=== PATIENT | male | born 1980 | race Caucasian/White ===

== ENCOUNTER 2024-04-19 06:45 | Inpatient (IN) | payer OTHER, SELFPAY ==
[2024-04-19] VITALS (12 sets, daily range): BP systolic 115–179; BP diastolic 66–100; BMI 28.4; BMI 28.1
--- NOTE | 2024-04-19 04:38 | ED.GENMED ---
History of Present Illness
General
Chief Complaint: Skin Problem
Source: patient
Exam Limitations: none
Time Seen by Provider: 04/19/24 04:24
Nursing documentation reviewed up to this point in time: agreed with
History of Present Illness
History of Present Illness:
This is a 43-year-old gentleman who has history of sporadic skin abscesses requiring hospitalization for IV antibiotics approximately 2 years ago.
He complains of a skin abscess right lower quadrant of his abdomen that began about 5 days ago, he started Bactrim�given to him by somebody else 2 days ago and has been attempting to squeeze the abscess and has been successful in drainage of a small
to moderate amount of yellowish purulent discharge but continues with significant pain and abscess as well as surrounding skin erythema have slowly worsened over the past 5 days.
He is unsure if he has been running a fever but does admit to intermittent chills and aches as well as intermittent sweats. He has been taking Tylenol as well as ibuprofen several times daily.
He takes no medicines on a daily basis. He denies history of diabetes, denies IV drug use, denies known history of MRSA. Last episode of skin abscess was at least 2 years ago perhaps longer.
He does have several tattoos but denies recent tattooing.
Past History
Past History
ED Past Medical History: Other (Skin abscesses requiring hospitalization)
ED Past Surgical History: None
Social History
Tobacco: Non-smoker
Drug: None
Family History
Family History: Other (Noncontributory)
Phy Exam
Physical Exam
Physical Exam:
GENERAL: 43-year-old gentleman appears somewhat older than stated age, awake and alert, pleasant, appears in mild distress related to pain but easily communicative. Afebrile.
EYE: anicteric
NECK: Supple, nontender, no meningismus, no significant adenopathy.
ENT: oral mucosa is moist. No rhinorrhea.
CARDIAC: Regular rate and rhythm. no murmur.
LUNGS: Clear breath sounds bilaterally, no acute respiratory distress, no wheezes/rales/rhonchi
ABDOMEN: Soft, nondistended, there is a large approximately 6 cm x 10 cm skin abscess right lower quadrant with a 1 cm medial ulcerated area with scant drainage of yellowish exudate. There is significant surrounding erythema as well as moderate
firmness tracking laterally from the skin abscess to the right lateral lower flank region. There is exquisite tenderness over the skin abscess and right lateral distal flank region.
NEUROLOGICAL: Alert and oriented x3, no focal neuro deficits. Gait is steady.
SKIN: Warm and dry, good turgor. Multiple tattoos.
MUSCULOSKELETAL: No C/C/E. peripheral pulses are full and equal b/l. No palpable tenderness.
PSYCH: Normal and appropriate interaction.
Course
Orders/Labs/Results
Orders:
Orders
04/19/24 04:55
Complete Blood Count/With Diff Urgent
Comprehensive Metabolic Panel Urgent
Lactic Acid Urgent
Blood Culture Q30M
[place] Source: Blood/Venous
Specimen Description:
HYDROmorphone [Dilaudid] 1 mg IV NOW STA
04/19/24 04:58
Blood Culture Q30M
[facility] Source: Blood/Venous
Specimen Description:
Wound Culture [Wound/Abscess/Other Culture] Urgent
[facility] Source: Abdomen
Specimen Description:
Date Specimen was Collected: 04/19/24
Time Specimen was Collected: 04:57
Comment: abscess
04/19/24 05:03
Vancomycin [Vancocin] 2,000 mg 0.9% Sodium Chloride 500 ml [Nss] 500 ml IV NOW
04/19/24 05:49
CT Abd/pelvis W Iv Cont Urgent
Comment:
Reason For Exam: large skin abscess RLQ w cellulitis
04/19/24 06:26
0.9% Sodium Chloride 500 ml [Nss] 500 ml IV BOLUS
04/19/24 06:27
0.9% Sodium Chloride 1000 ml [Nss] 1,000 ml IV BOLUS
04/19/24 06:31
Admit/Transfer Patient As Directed
Co-Sign Provider:
Level of Care: Inpatient admission
Assign to:: Medical/Surgical
Physician / Group: Ciera Alston
Diagnosis: sepsis 2/2 cellulitis/abscess
Reason for Hospitalization: sepsis 2/2 cellulitis/abscess
Expected length of stay greater than two midnights?: Yes
ELOS- Estimated Length of Stay in days: 3
I certify the patient meets the requirements for IP care: Yes
Code Status As Directed
Resuscitation Status: Full Code
Abnormal Lab Results
04/19/24
04:55
WBC 20.1 H 10^3/uL
(4.8-10.8)
RBC 4.17 L 10^6/uL
(4.70-6.10)
Hgb 12.9 L g/dL
(13.0-18.0)
Hct 38.0 L %
(39.0-52.0)
Abs Immat Gran (auto) 0.2 H 10^3/uL
(0-0.05)
Absolute Neuts (auto) 16.6 H 10^3/uL
(1.4-6.5)
Absolute Monos (auto) 1.9 H 10^3/uL
(0.1-0.6)
Immature Gran % 0.7 H %
(0-0.5)
Neutrophils % 82.5 H %
(42.2-75.2)
Lymphocytes % 6.2 L %
(20.5-51.1)
Carbon Dioxide 21 L mmol/L
(22-30)
BUN 22 H mg/dl
(9-20)
04/19/24 04:55
04/19/24 04:55
Vital Signs
Initial and Last Documented VS:
Initial Vital Signs
Temp Pulse Resp BP Pulse Ox
98.3 F 93 22 156/90 96
04/19/24 04:10 04/19/24 04:10 04/19/24 04:10 04/19/24 04:10 04/19/24 04:10
Last Documented Vital Signs
Temp Pulse Resp BP Pulse Ox
98.3 F 84 15 134/80 98
04/19/24 04:10 04/19/24 06:15 04/19/24 06:15 04/19/24 06:00 04/19/24 06:15
MDM/Problems Addressed
Differential Diagnosis Includes:
Patient presents with large arm skin abscess right lower quadrant with significant surrounding cellulitis.
Concern for deeper skin infection and concerned that erythema/abscess have worsened despite initiation of oral antibiotics 2 days ago.
He does admit to squeezing the abscess, concern that these actions have been inadvertently driven infection deeper.
He does have history of similar abscesses in the past, I suspect this is MRSA related.
He denies history of diabetes nor immunocompromise.
Will check labs, blood cultures, lactic acid, wound culture.
This abscess is quite firm without fluctuance and at this point not amenable to incision and drainage.
Will initiate IV antibiotics, IV pain medication and will likely require acute hospitalization due to extent of surrounding erythema/induration.
*Radiology
Radiology exam reviewed: radiology read reviewed (CAT scan shows severe/extensive cellulitis throughout the right anterolateral abdominal wall. No evidence of rim-enhancing abscess nor soft tissue emphysema.)
*Pulse Oximetry
Patient hypoxic: no
*Critical Care Note
Total Time (30-74mins, 75-104mins- exclusive of procedures): Not Applicable
Update Note
Update Note:
04/19/2024 0550 AM
Patient reports moderate relief of pain after IV Dilaudid, resting comfortably and remains afebrile.
White blood cell count significantly elevated at 20.1.
Will continue antibiotics, as needed pain medication and will check CT abdomen pelvis to assess for depth and extent of abscess and admit to hospitalist service.
ED Attending Note
-
Portions of this chart may have been created with voice recognition software.� Occasional wrong word or��sound alike� substitutions may have occurred due to the inherent limitations of voice recognition software.
Discharge Plan
Departure
Patient Disposition: Admit
Date of Disposition: 04/19/24
Time of Disposition: 05:45
Admit to: Med/Surg
Admit to doctor: Gamaliel
Presentation/result/management discussed w/ accepting MD/DO: Hospitalist
Condition: Fair
Discharge Problem:
Cutaneous abscess of abdominal wall, cellulitis and abscess of abdominal wall
Interventions
Interventions:
*Risk Screen - Suicide Last Done: 04/19/24 04:10
*General Assessment Last Done: 04/19/24 04:30
*Neglect/Abuse Screening Last Done: 04/19/24 04:10
*ED COVID-19 Vaccine History Last Done: 04/19/24 04:10
ED-Skin Assessment Last Done: 04/19/24 05:24
[2024-04-19] MEDS: DILAUDID 1 MG IV (05:03)
[2024-04-19 05:18] LABS: % Basophils 0.4 % (0-2); % Eosinophils 0.9 % (0-6); % Immature Granulocytes 0.7 % (0-0.5); % Lymphocytes 6.2 % (20.5-51.1); % Monocytes 9.3 % (1.7-9.3); % Neutrophils 82.5 % (42.2-75.2); Absolute Basophils 0.1 10^3/uL (0-0.2); Absolute Eosinophils 0.2 10^3/uL (0-0.7); Absolute Immature Granulocytes 0.2 10^3/uL (0-0.05); Absolute Lymphocytes 1.3 10^3/uL (1.2-3.4); Absolute Monocytes 1.9 10^3/uL (0.1-0.6); Absolute Neutrophils 16.6 10^3/uL (1.4-6.5); Hemoglobin 12.9 g/dL (13.0-18.0); Mean Corp Hgb Conc. 33.9 g/dL (33.0-37.0); Mean Corpuscular Hgb 30.9 pg (27.0-31.0); Mean Corpuscular Volume 91.1 fL (80.0-94.0); Mean Platelet Volume 10.4 fL (7.4-10.4); Nucleated Red Blood Cells % 0 % (-); Platelet Count 231 10^3/uL (130-400); Red Blood Cell Count 4.17 10^6/uL (4.70-6.10); Red Cell Dist. Width 14.5 % (11.5-14.5); White Blood Cell Count 20.1 10^3/uL (4.8-10.8)
[2024-04-19] MEDS: VANCOCIN 540 MG IV (05:20)
[2024-04-19 05:34] LABS: ALT (SGPT) 33 U/L (0-50); AST (SGOT) 31 U/L (17-59); Alkaline Phosphatase 71 U/L (38-126); Blood Urea Nitrogen 22 mg/dl (9-20); Calcium 9.2 mg/dl (8.4-10.2); Carbon Dioxide 21 mmol/L (22-30); Chloride 104 mmol/L (98-107); Estimated Creatinine Clearance 94 ml/min; Glucose 98 mg/dl (70-99); Potassium 4.4 mmol/L (3.5-5.1); Sodium 138 mmol/L (135-145); Total Bilirubin 0.7 mg/dl (0.2-1.3); Total Protein 6.9 g/dl (6.3-8.2); eGFR > 60.00
--- NOTE | 2024-04-19 05:52 | HPS.HSE ---
Family Physician
-
Family Physician: * NONE
Chief Complaint
-
skin problem
History of Present Illness
Mr. Gareth Antonio is a 43 yo man with hx skin abscess with one requiring hospitalization 2 years ago for IV antibiotics presents to the ER for finding of in-grown hair 5 days ago which has now developed into an abscess right lower quadrant of
abdomen. He was given Bactrim 2 days ago but continues to have significant pain and redness in area.
Patient states he noticed an ingrown hair and picked at it but couldn't get it out. He tried at home naturopathic topical remedies but area continued to grow. He started Bactrim 3 days ago. He states that area of exudate is improving but erythema
and pain/ induration lateral to it has remained the same and maybe progressed prompting him to come to the ER. He believes he was feverish at home. No nausea/vomiting/diarrhea. He has been eating and drinking OK.
No chest pain or shortness of breath. No abscesses in other parts of body. Patient denies recent injury to the area, he denies IVDA. 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
infections.
Medical History
Past Medical History
Past Medical History: Reports None
Past Surgical History: Reports None
Social History
Tobacco: Non-smoker
Drug: None
Family History
Family History: Not pertinent
Allergies / Home Medications
Allergies reflects when Allergies were last updated in [employer].
Home Medications with original date entered in [employer]
Allergy/Medication List:
Allergies
Allergy/AdvReac Type Severity Reaction Status Date / Time
No Known Allergies Allergy Unverified 04/19/24 04:10
Home Medications
No Meds [No Current Medications] 04/19/24
Review of Systems
-
History Source: Patient
A 12 point ROS was completed and negative except as noted: Yes
Physical Exam
Vital Signs
Vital Signs
Temp Pulse Resp BP Pulse Ox
98.3 F 93 22 156/90 96
04/19/24 04:10 04/19/24 04:10 04/19/24 04:10 04/19/24 04:10 04/19/24 04:10
Physical Exam
General: No Apparent Distress
HEENT: PERRLA
Respiratory: Clear; No Wheezes
Cardiac: S1/S2 and Regular Rhythm
GI: Other (right lower quadrant with area of erythema, induration with smaller area of exudate and drainage. erythema extends down lateral side. area warm and tender )
Musculoskeletal: No Edema
Skin: Warm and Dry; No Rash
Neuro: AO x 3
Psych: Calm
Laboratory Results
-
04/19/24 04:55
04/19/24 04:55
Laboratory Results
Lactic Acid 1.0 mmol/L (0.7-2.0) 04/19/24 04:55
Total Bilirubin 0.7 mg/dl (0.2-1.3) 04/19/24 04:55
AST 31 U/L (17-59) 04/19/24 04:55
ALT 33 U/L (0-50) 04/19/24 04:55
Alkaline Phosphatase 71 U/L (38-126) 04/19/24 04:55
Data Reviewed
-
Diagnostic Radiology: Report Reviewed by me
Lab Data: Labs Reviewed by me
Impression/Plan
-
Mr. Gareth Antonio is a 43 yo man with hx skin abscess requiring hospitalization 2 years ago for IV antibiotics presents to the ER for finding of abscess right lower quadrant of abdomen 5 days ago. He was given Bactrim 2 days ago but continues to
have significant pain and redness in area.
Triage VS: T 98.3, P 93, RR 22, BP 156/90, SpO2 96%
LABS: WBC 20.1, Hg 12.9, PLT 231, Na 138, K+ 4.4, CO2 21, BUN 22, Cr 1.2, Glucose 98, lactate 1.0, Ca 9.2, liver enzymes WNL
Skin abscess on abdomen
Sepsis 2/2 skin abscess
Hx skin abscess requiring hospitalization 2 years ago
-admit to med/surg
-s/p IV Vancomycin in the ER, will continue
-CT A/P ordered in ER, follow up results
-will keep NPO until results to ensure no deeper infection that requires surgical consult
-follow up blood cultures
-follow up wound culture (cultured from small area of drainage)
-IVF
-pain control (add on oral when starting diet)
DVT PPx lovenox
FULL CODE
[2024-04-19] MEDS: NSS 1000 IV (07:42)
[2024-04-19] MEDS: DILAUDID 0.5 MG IV ×4 (07:47→22:08)
[2024-04-19] MEDS: TORADOL 15 MG IV ×3 (09:37→20:41)
--- NOTE | 2024-04-19 09:45 | PHA.VAN.IN ---
Addendum entered and electronically signed by Letitia Benitez [facility] 04/19/24 12:02:
Received IV contrast 04/19 and on ketorolac PRN - follow renal function and dose vanco cautiously
Original Note:
Assessment
- Assessment
Renal Function: Unknown baseline
Plan
- Plan
Initial / Loading Dose: 2000mg - 04/19 05:20
Maintenance Regimen: dosing by level - give 1250mg x1 at 1800
Monitoring: random 04/20 0600
May be able to schedule dosing
Unknown baseline renal function and may require dose adjustment based on SCR trend
Will trial with BID dosing by giving dose at 1800 tonight
Pharmacokinetics Vancomycin I
- -
Patient Age: 43
Patient Sex: Male
Vancomycin Day #: 1
Indication: Skin And Soft Tissue
Requesting Provider: Dr. Alston
Pertinent Antimicrobial Allergies:
NKDA
Height / Weight:
Height 6 ft 2 in
Actual Weight 100.3 kg
- Vital Signs / Lab Results
Temp Pulse Resp BP Pulse Ox
98.6 F 85 18 119/74 98
04/19/24 07:50 04/19/24 07:50 04/19/24 07:50 04/19/24 07:50 04/19/24 07:50
Lab Results - Hematology
04/19/24
04:55
WBC 20.1 H
Lab Results - Chemistry
04/19/24
04:55
BUN 22 H
Creatinine 1.2
Estimated Creat Clear 94
Albumin 4.0
04/19/24
04:55
Lactic Acid 1.0
[2024-04-19] MEDS: LR 1000 IV (11:56)
[2024-04-19] MEDS: TYLENOL 650 MG PO ×3 (11:59→22:18)
[2024-04-19] MEDS: ZOFRAN 4 MG IV (12:00)
[2024-04-19] MEDS: VISBIOME 1 CAP PO (12:37)
[2024-04-19] MEDS: LOVENOX 40 MG SC (17:06)
[2024-04-19] MEDS: VANCOCIN 275 MG IV (18:14)
--- NOTE | 2024-04-19 21:05 | PTCARENOTE ---
At the start of the shift pt was very upset about the temperature of his room. Fan on at the bedside. Temp 100.3. Pt made aware that he would be moved to room 427 once the room became open. He became very anxious stating that he couldn't believe
they would put someone in is condition in a hot room. Paula Evans NURSING SCHEDULER aware of his anxiety and concerns and the fact that he is asking for something for anxiety. He is also asking for a shower. Order was put in for shower. When pt attempted to
shower it was discovered that the shower does not work. Pt continued to complain about temperature and pain. Reviewed medications and when they are due. Tordal was given. Pt requesting that Dilaudid be increase to 1mg as he is a 'big ward'. Nursing
Food [employer] Nutrition Teacher was called about finding him a room to move to. Decision was made to move him to room 411 bed 2. Report was given to Kylie. Paula Evans talked to him once moved to that room. All belongings were transferred with him.
--- NOTE | 2024-04-19 22:33 | PTCARENOTE ---
Received patient from 4W. Pt AAOX3. Pt anxious; c/o R lower abd pain 10/10. Pt took a shower. Pox: 97% RA. Call lowe within reach. Plan of care ongoing.
[2024-04-20] MEDS: DILAUDID 0.5 MG IV ×2 (00:36→05:03)
[2024-04-20] MEDS: ZOFRAN 4 MG IV (00:37)
[2024-04-20] MEDS: FLUSH (NSS) 1 FLUSH IV (00:37)
[2024-04-20] MEDS: TYLENOL 650 MG PO ×4 (02:30→20:27)
[2024-04-20] MEDS: LR 1000 IV (02:30)
[2024-04-20] MEDS: TORADOL 15 MG IV (06:14)
[2024-04-20 06:23] VITALS: BP 143/92
[2024-04-20 07:03] VITALS: BP 143/92
[2024-04-20 07:11] LABS: % Basophils 0.3 % (0-2); % Eosinophils 0.9 % (0-6); % Immature Granulocytes 0.6 % (0-0.5); % Lymphocytes 8.2 % (20.5-51.1); % Monocytes 9.1 % (1.7-9.3); % Neutrophils 80.9 % (42.2-75.2); Absolute Basophils 0.1 10^3/uL (0-0.2); Absolute Eosinophils 0.1 10^3/uL (0-0.7); Absolute Immature Granulocytes 0.1 10^3/uL (0-0.05); Absolute Lymphocytes 1.3 10^3/uL (1.2-3.4); Absolute Monocytes 1.5 10^3/uL (0.1-0.6); Absolute Neutrophils 13.1 10^3/uL (1.4-6.5); Hematocrit 34.9 % (39.0-52.0); Hemoglobin 11.8 g/dL (13.0-18.0); Mean Corp Hgb Conc. 33.8 g/dL (33.0-37.0); Mean Corpuscular Hgb 31.4 pg (27.0-31.0); Mean Corpuscular Volume 92.8 fL (80.0-94.0); Mean Platelet Volume 10.1 fL (7.4-10.4); Nucleated Red Blood Cells % 0 % (-); Platelet Count 202 10^3/uL (130-400); Red Blood Cell Count 3.76 10^6/uL (4.70-6.10); White Blood Cell Count 16.2 10^3/uL (4.8-10.8)
[2024-04-20 08:00] LABS: Blood Urea Nitrogen 12 mg/dl (9-20); Calcium 8.4 mg/dl (8.4-10.2); Carbon Dioxide 21 mmol/L (22-30); Chloride 100 mmol/L (98-107); Estimated Creatinine Clearance 106 ml/min; Glucose 95 mg/dl (70-99); Potassium 4.1 mmol/L (3.5-5.1); Sodium 132 mmol/L (135-145); eGFR > 60.00
[2024-04-20 08:11] LABS: Vancomycin Random < 5.0 ug/ml
[2024-04-20] MEDS: VISBIOME 1 CAP PO (08:24)
--- NOTE | 2024-04-20 08:30 | PHA.VAN.FU ---
Vancomycin Assessment / Plan
- Assessment
Renal Function: SCR Decreasing (1.2->1.1)
WBC's are: Trending Down
In the past 24 hrs, patient has been: Febrile (100.8 - 04/19/24 18:37)
- Dosing Plan
Adjust Regimen to: vancomycin 1250mg q12h - first dose this morning
New Regimen Predicts: AUC (427), Peak (26.9), Trough (10.8)
- Monitoring Plan
No level(s) ordered at this time: conisder levels after 4th main. dose 04/21 PM
Monitoring Comments: follow renal function closely - recd IV contrast 04/19; on ketorolac prn
- Follow Up
Pharmacy will continue to follow.
Vancomycin Follow UP
- -
Patient Age: 43
Patient Sex: Male
Vancomycin Day #: 2
Indication: Skin And Soft Tissue
Requesting Provider: Dr. Alston
Pertinent Antimicrobial Allergies:
NKDA
Height / Weight:
Height 6 ft 3 in
Actual Weight 102.058 kg
- Vital Signs / Lab Results
Temp Pulse Resp BP Pulse Ox
98.6 F 90 18 143/92 99
04/20/24 07:03 04/20/24 07:03 04/20/24 07:03 04/20/24 07:03 04/20/24 07:03
Lab Results - Hematology
04/19/24 04/20/24
04:55 07:00
WBC 20.1 H 16.2 H
Lab Results - Chemistry
04/19/24 04/20/24
04:55 07:00
BUN 22 H 12
Creatinine 1.2 1.1
Estimated Creat Clear 94 106
Albumin 4.0
04/19/24
04:55
Lactic Acid 1.0
Microbiology Results
04/19/24 04:58 Blood Culture - Preliminary
Blood/Venous No Growth in 24 hours- Final report to follow
04/19/24 04:55 Blood Culture - Preliminary
Blood/Venous No Growth in 24 hours- Final report to follow
04/19/24 04:58 Gram Stain - Preliminary
Abdomen
Therapeutic Drug Monitoring
Random Vancomycin < 5.0 ug/ml 04/20/24 07:00
[2024-04-20] MEDS: VANCOCIN 275 MG IV ×2 (08:44→17:33)
[2024-04-20] MEDS: ULTRAM 50 MG PO (09:43)
--- NOTE | 2024-04-20 10:06 | W.PN.HOSP.TC ---
Addendum entered and electronically signed by John Granados MD 04/20/24 15:28:
Gen surg evaluated and as suspected no clear fluctuant area to drain
patient does not have pain relief with tramadol, will change to oxycodone,
Addendum entered and electronically signed by John Granados MD 04/20/24 10:15:
Headache
- Dilaudid d/gill if causing it
- empiric dose of imitrex x1
Original Note:
Today's Communication/Plan
-
GS eval for possible need bedside i&d
MRSA screen report pending
pain meds adjusted
continue vanc
Assessment / Plan
Assessment / Plan
Skin abscess on abdomen
Sepsis 2/2 skin abscess
Hx skin abscess requiring hospitalization 2 years ago
-CT a/p didn't show any deeper collection
-continue on IV vancomycin as quite indurate area with surrounding cellulitics
-MRSA screen report pending, denies h/o of immunocompromised state, check a1c
-change iv Dilaudid to oral tramadol for pain control, if not helpful will provide oxycodone
-Gen surg asked to evaluate for possible bedside i&d at bedside, mainly induration in my opinion
-WBC trending down, remains afebrile
Normocytic anemia
-minimal , monitor
Hyponatremia
-mild, pain related ADH excess likely causing euvolemic hyponatremia
DVT PPx lovenox
FULL CODE
Anticipated Discharge: 24 - 48 hours
Subjective/Interval History
-
Date of Service: April 20, 2024
still having significant pain at cellulitis site
afebrile in night
having headache as well
Objective Data
-
Labs:
Laboratory Results
04/20/24
07:00
WBC 16.2 H
Hgb 11.8 L
Hct 34.9 L
Plt Count 202
Sodium 132 L
Potassium 4.1
Chloride 100
Carbon Dioxide 21 L
BUN 12
Creatinine 1.1
Glucose 95
Calcium 8.4
Vital Signs:
Vital Signs
Temp Pulse Resp BP Pulse Ox
98.6 F 90 18 143/92 99
04/20/24 07:03 04/20/24 07:03 04/20/24 07:03 04/20/24 07:03 04/20/24 07:03
I&O
04/19/24 04/20/24 04/21/24
06:59 06:59 06:59
Intake Total 1959
Balance 1959
Review of Systems
-
Respiratory: Reports No Symptoms
Cardiac: Reports No Symptoms
Abdomen/GI: Reports Abdominal Pain (on right flank)
Physical Exam
-
General: Comfortable
HEENT: Negative Oxygen
Respiratory: Clear to Auscultation
Cardiac: Regular Rhythm and S1/S2; Negative Murmur or Rub
GI: Soft, Nontender, Nondistended and Other (Right lower quadrant linear indurate area of 5x2 cm, scabbed pinpoint area at most prominent point, surrounding skin erythema tracking on back )
Musculoskeletal: No Edema
Neuro: Awake, Alert, Oriented, No Motor Deficits and Nonfocal/Grossly Intact
Psych: Calm
[2024-04-20] MEDS: IMITREX 25 MG PO (10:46)
--- NOTE | 2024-04-20 11:26 | CM ---
The patient resides with his spouse in a two story home with three steps to enter. The patient reports no DME/VN/SNF in the past. The patient confirmed his pharmacy of choice is the [facility]. CM continues to be
available to patient/family and is monitoring medical plan for needs at discharge.
Plan: Discharge plans will depend on the patient's progress.
[2024-04-20 11:46] LABS: Glycohemoglobin (HgbA1c) 5.6 % (4.0-5.6)
--- NOTE | 2024-04-20 12:14 | CON.GS ---
Consultation
-
Requesting Provider: Laura Granadso
Reason for Consultation: cellulitis
Medical History
-
Chief Complaint: skin to abdomen red/inflammed
History of Present Illness:
Mr. Antonio is a 43 yo male who has a history of prior abscesses to skin (one requiring hospitalization at [place]) which he attributes to [facility] training who presents with redness and irritation to the skin on the right mid to lateral abdomen. The
redness began at the site of what looked like an ingrown hair for which he tried naturopathic remedies and removing the hair without much benefit. He was given a script for Bactrim 2-3 days prior to admission, but continued to have significant pain
and redness in area causing him to present. There was bubbling up of the skin with liquid yellow and ?green drainage noted at home to the medial aspect of the wound with erythema spreading from this area laterally across his abdomen. There is some
scabbing and small blistering present with significant erythema tracking around the right flank from the initial wound site which is to the lower right of the umbilicus. Erythema was marked previously and has not improved or worsened from prior
markings. He has been afebrile here but does note subjective fevers at home.
Past Medical History
Past Medical History: Other (Skin infections)
Past Surgical History: None
Social History
Tobacco: Non-Smoker
Alcohol: None
Family History
Family History: Reviewed & Not Pertinent
Allergies / Home Medications
Allergy/AdvReac Type Severity Reaction Status Date / Time
No Known Allergies Allergy Unverified 04/19/24 04:10
�Medication �Instructions �Recorded �Confirmed �Type
Ashwagandha+Lion's Sean 2 tab PO DAILY 04/19/24 04/19/24 History
Beet Root 1 dose PO DIRECTED 04/19/24 04/19/24 History
acetaminophen 500 mg tablet 1,000 mg PO DAILYPRN PRN mild 04/19/24 04/19/24 History
(Tylenol Extra Strength) pain/fever
creatine monohydrate 1 ea PO DIRECTED 04/19/24 04/19/24 History
ibuprofen 600 mg tablet 1,200 mg PO DAILYPRN PRN mild 04/19/24 04/19/24 History
pain/fever
Review of Systems
-
History Source: Patient
All other systems: Negative unless noted
A 10 point review of systems was completed, and was negative except as per HPI.
Physical Exam
Vital Signs
Temp Pulse Resp BP Pulse Ox
98.6 F 90 18 143/92 99
04/20/24 07:03 04/20/24 07:03 04/20/24 07:03 04/20/24 07:03 04/20/24 07:03
04/19/24 04/20/24 04/21/24
06:59 06:59 06:59
Actual Weight 100.3 kg 102.058 kg
Body Mass Index (BMI) 28.1
Lab Results
04/20/24 07:00
04/20/24 07:00
WBC 16.2 10^3/uL (4.8-10.8) H 04/20/24 07:00
Hgb 11.8 g/dL (13.0-18.0) L 04/20/24 07:00
Hct 34.9 % (39.0-52.0) L 04/20/24 07:00
Plt Count 202 10^3/uL (130-400) 04/20/24 07:00
Abs Immat Gran (auto) 0.1 10^3/uL (0-0.05) H 04/20/24 07:00
Neutrophils % 80.9 % (42.2-75.2) H 04/20/24 07:00
Physical Exam
General: Well Developed and Well Nourished
HEENT: Moist Mucous Membranes
Respiratory: Non Labored Respirations
GI: Soft and Non Tender
Skin: Warm and Other (right abdomen just right/lateral of umbilicus with crusting/scabbed area with surrounding erythema extending into the flank (not improved or worsened from prior markings))
Neuro: Awake, Alert and AO x 3
Psych: Calm
Assessment / Plan
-
43 yo male with significant cellulitis of the skin to the right abdominal wall into the flank, failed OP PO Bactrim x2-3 days. Afebrile. Leukocytosis improved since admission. Erythema present and severe without induration or fluctuance that would
suggest abscess. CT imaging reviewed without drainable collection/abscess cavity noted although significant subcutaneous edema present.
--NO plans for operative intervention at this time
--Continue local care, ok to shower
--Antibiotics as per primary team
--Wound/MRSA screens pending
[2024-04-20 15:15] VITALS: BP 155/95
[2024-04-20] MEDS: ROXICODONE 10 MG PO ×2 (16:16→20:26)
[2024-04-20] MEDS: LOVENOX SC ×2 (17:32→17:46)
[2024-04-20 23:16] VITALS: BP 147/85
[2024-04-21] MEDS: TYLENOL 650 MG PO ×4 (01:10→23:19)
[2024-04-21] MEDS: ROXICODONE 10 MG PO ×5 (01:10→23:19)
[2024-04-21] MEDS: TORADOL 15 MG IV ×3 (03:37→16:02)
[2024-04-21 05:21] LABS: Hematocrit 36.7 % (39.0-52.0); Hemoglobin 12.4 g/dL (13.0-18.0); Mean Corp Hgb Conc. 33.8 g/dL (33.0-37.0); Mean Corpuscular Hgb 31.2 pg (27.0-31.0); Mean Corpuscular Volume 92.2 fL (80.0-94.0); Mean Platelet Volume 10.4 fL (7.4-10.4); Platelet Count 237 10^3/uL (130-400); Red Blood Cell Count 3.98 10^6/uL (4.70-6.10); Red Cell Dist. Width 13.7 % (11.5-14.5); White Blood Cell Count 15.7 10^3/uL (4.8-10.8)
[2024-04-21 05:45] LABS: Blood Urea Nitrogen 10 mg/dl (9-20); Calcium 8.7 mg/dl (8.4-10.2); Carbon Dioxide 21 mmol/L (22-30); Chloride 99 mmol/L (98-107); Estimated Creatinine Clearance 116 ml/min; Glucose 84 mg/dl (70-99); Potassium 3.9 mmol/L (3.5-5.1); Sodium 135 mmol/L (135-145); eGFR > 60.00
[2024-04-21] MEDS: VANCOCIN 275 MG IV ×2 (06:04→17:19)
[2024-04-21 07:30] VITALS: BP 118/70
[2024-04-21] MEDS: VISBIOME 1 CAP PO (09:28)
[2024-04-21] MEDS: FLUSH (NSS) 2 FLUSH IV ×3 (10:19→17:21)
--- NOTE | 2024-04-21 10:45 | PHA.VAN.FU ---
Vancomycin Assessment / Plan
- Assessment
Renal Function: SCR Decreasing (1.2->1.1->1.0)
WBC's are: Trending Down
In the past 24 hrs, patient has been: Afebrile
Concomitant Antimicrobials: none
- Dosing Plan
Continue: vancomycin 1250 mg q12h
- Monitoring Plan
Peak Level: 04/21/24 2100 - after 4th main. dose
Trough Level: 04/22/24 0530
- Follow Up
Pharmacy will continue to follow.
Vancomycin Follow UP
- -
Patient Age: 43
Patient Sex: Male
Vancomycin Day #: 3
Indication: Skin And Soft Tissue
Requesting Provider: Dr. Alston
Pertinent Antimicrobial Allergies:
NKDA
Height / Weight:
Height 6 ft 3 in
Actual Weight 102.058 kg
- Vital Signs / Lab Results
Temp Pulse Resp BP Pulse Ox
98.7 F 84 16 118/70 97
04/21/24 07:30 04/21/24 07:30 04/21/24 07:30 04/21/24 07:30 04/21/24 07:30
Lab Results - Hematology
04/19/24 04/20/24 04/21/24
04:55 07:00 04:43
WBC 20.1 H 16.2 H 15.7 H
Lab Results - Chemistry
04/19/24 04/20/24 04/21/24
04:55 07:00 04:43
BUN 22 H 12 10
Creatinine 1.2 1.1 1.0
Estimated Creat Clear 94 106 116
Albumin 4.0
04/19/24
04:55
Lactic Acid 1.0
Microbiology Results
04/19/24 04:58 Wound Culture - Final
Abdomen Staph aureus MRSA
Gram Stain - Final
04/19/24 04:55 Blood Culture - Preliminary
Blood/Venous No Growth in 48 hours- Final report to follow
04/19/24 04:58 Blood Culture - Preliminary
Blood/Venous No Growth in 48 hours- Final report to follow
04/19/24 15:09 MRSA Screen - Final
Nose No Methicillin Resistant Staphylococcus aureus isolated.
Therapeutic Drug Monitoring
Random Vancomycin < 5.0 ug/ml 04/20/24 07:00
--- NOTE | 2024-04-21 10:57 | W.PN.HOSP.TC ---
Today's Communication/Plan
-
continue abx one more day
warm compress
wound cs of abscess
discharge tomorrow
Assessment / Plan
Assessment / Plan
Skin abscess on abdomen
Sepsis 2/2 skin abscess
Hx skin abscess requiring hospitalization 2 years ago
-CT a/p didn't show any deeper collection
-continue on IV vancomycin
-MRSA screen positive.
-Gen surg evaluated and nothing drainable on bedside exam. having spontaneous drainage from prominent wound area. Wound culture to be collected
-WBC trending down, remains afebrile
-Cellulitis area marked and slowly improving.
Normocytic anemia
-minimal , monitor
Hyponatremia
-mild, pain related ADH excess likely causing euvolemic hyponatremia
DVT PPx lovenox
FULL CODE
Anticipated Discharge: Within 24 hours
Subjective/Interval History
-
Date of Service: April 21, 2024
having spontaneous drainage at furuncle site
Objective Data
-
Labs:
Laboratory Results
04/21/24
04:43
WBC 15.7 H
Hgb 12.4 L
Hct 36.7 L
Plt Count 237
Sodium 135
Potassium 3.9
Chloride 99
Carbon Dioxide 21 L
BUN 10
Creatinine 1.0
Glucose 84
Calcium 8.7
Vital Signs:
Vital Signs
Temp Pulse Resp BP Pulse Ox
98.7 F 84 16 118/70 97
04/21/24 07:30 04/21/24 07:30 04/21/24 07:30 04/21/24 07:30 04/21/24 07:30
I&O
04/20/24 04/21/24 04/22/24
06:59 06:59 06:59
Intake Total 1959 / 3379
Balance 1959 / 3379
Review of Systems
-
Respiratory: Reports No Symptoms
Cardiac: Reports No Symptoms
Abdomen/GI: Reports No Symptoms
Physical Exam
-
General: Comfortable
HEENT: Negative Oxygen
Respiratory: Clear to Auscultation
Cardiac: Regular Rhythm and S1/S2; Negative Murmur or Rub
GI: Soft, Nontender, Nondistended and Other (Right lower quadrant linear indurate area of 5x2 cm, scabbed pinpoint area at most prominent point, surrounding skin erythema tracking on back , purulen drainage at prominence)
Musculoskeletal: No Edema
Neuro: Awake, Alert, Oriented, No Motor Deficits and Nonfocal/Grossly Intact
Psych: Calm
[2024-04-21 15:10] VITALS: BP 123/75
[2024-04-21] MEDS: LOVENOX SC (17:21)
[2024-04-21 22:02] LABS: Vancomycin Peak 12.9 ug/ml (18-26)
[2024-04-21 23:07] VITALS: BP 158/96
[2024-04-22] MEDS: TORADOL 15 MG IV ×2 (01:40→09:26)
[2024-04-22 05:10] LABS: Hematocrit 37.8 % (39.0-52.0); Hemoglobin 13.1 g/dL (13.0-18.0); Mean Corp Hgb Conc. 34.7 g/dL (33.0-37.0); Mean Corpuscular Hgb 31.5 pg (27.0-31.0); Mean Corpuscular Volume 90.9 fL (80.0-94.0); Platelet Count 274 10^3/uL (130-400); Red Blood Cell Count 4.16 10^6/uL (4.70-6.10); Red Cell Dist. Width 13.5 % (11.5-14.5)
[2024-04-22 05:34] LABS: Blood Urea Nitrogen 16 mg/dl (9-20); Calcium 8.7 mg/dl (8.4-10.2); Carbon Dioxide 26 mmol/L (22-30); Chloride 99 mmol/L (98-107); Estimated Creatinine Clearance > 125 ml/min; Glucose 113 mg/dl (70-99); Potassium 3.6 mmol/L (3.5-5.1); Sodium 135 mmol/L (135-145); eGFR > 60.00
[2024-04-22] MEDS: VANCOCIN 275 MG IV (05:58)
[2024-04-22] MEDS: ROXICODONE 10 MG PO (06:15)
[2024-04-22 07:07] VITALS: BP 126/73
--- NOTE | 2024-04-22 07:12 | PHA.VAN.FU ---
Vancomycin Assessment / Plan
- Assessment
Renal Function: SCR Increasing (1.2->1.1->1.0->0.9)
WBC's are: Trending Down
In the past 24 hrs, patient has been: Afebrile
- Assessment - Therapeutic Drug Monitoring
Extrapolated Cmax (mcg/mL): 16
Peak level was drawn: Appropriately
Extrapolated Cmin (mcg/mL): 5.8
Trough Drawn: Appropriately
Levels were drawn: At steady state
Calculated AUC (mcg*h/mL): 244
Calculated ke: 0.0963
Calculated half life (H): 7.2
Calculated Vd (L): 106.05
Calculated Vanc CL (ml/min): 170.18
- Dosing Plan
Adjust Regimen to: vancomycin 1500 mg q8h - to start 1400 today
New Regimen Predicts: AUC (473), Peak (26.3), Trough (14.1)
- Monitoring Plan
No level(s) ordered at this time: consider repeat levels after 5th 1500 mg dose
- Follow Up
Pharmacy will continue to follow.
Vancomycin Follow UP
- -
Patient Age: 43
Patient Sex: Male
Vancomycin Day #: 4
Indication: Skin And Soft Tissue
Requesting Provider: Dr. Alston
Pertinent Antimicrobial Allergies:
NKDA
Height / Weight:
Height 6 ft 3 in
Actual Weight 102.058 kg
- Vital Signs / Lab Results
Temp Pulse Resp BP Pulse Ox
98.1 F 85 18 158/96 98
04/21/24 23:07 04/21/24 23:07 04/21/24 23:07 04/21/24 23:07 04/21/24 23:07
Lab Results - Hematology
04/20/24 04/21/24 04/22/24
07:00 04:43 05:01
WBC 16.2 H 15.7 H 13.0 H
Lab Results - Chemistry
04/20/24 04/21/24 04/22/24
07:00 04:43 05:01
BUN 12 10 16
Creatinine 1.1 1.0 0.9
Estimated Creat Clear 106 116 > 125
Microbiology Results
04/19/24 04:58 Blood Culture - Preliminary
Blood/Venous No Growth in 72 hours- Final report to follow
04/19/24 04:55 Blood Culture - Preliminary
Blood/Venous No Growth in 72 hours- Final report to follow
04/19/24 04:58 Wound Culture - Final
Abdomen Staph aureus MRSA
Gram Stain - Final
04/19/24 15:09 MRSA Screen - Final
Nose No Methicillin Resistant Staphylococcus aureus isolated.
Therapeutic Drug Monitoring
Vancomycin Peak 12.9 ug/ml (18-26) L 04/21/24 21:04
Vancomycin Trough 6.0 ug/ml (5-20) 04/22/24 05:01
Random Vancomycin < 5.0 ug/ml 04/20/24 07:00
[2024-04-22] MEDS: VISBIOME 1 CAP PO (09:23)
[2024-04-22] MEDS: FLUSH (NSS) 2 FLUSH IV ×2 (09:27→13:43)
--- NOTE | 2024-04-22 10:18 | W.PN.HOSP.TC ---
Today's Communication/Plan
-
US of the abd
continue vanc
Assessment / Plan
Assessment / Plan
Skin abscess on abdomen from MRSA
Sepsis 2/2 skin abscess
Hx skin abscess requiring hospitalization 2 years ago
-CT a/p didn't show any deeper collection
-Wound cs growing MRSA
-continue on IV vancomycin
-Gen surg evaluated and nothing drainable on bedside exam. having spontaneous drainage from prominent wound area.
-WBC trending down, remains afebrile
-On exam today there is likely a small abscess cavity developing at nondependent area of the skin abscess, check US abd to look for any skin abscess.
Normocytic anemia
-minimal , monitor
Hyponatremia
-mild, pain related ADH excess likely causing euvolemic hyponatremia
DVT PPx lovenox
FULL CODE
Anticipated Discharge: Within 24 hours
Subjective/Interval History
-
Date of Service: April 22, 2024
continues to have significant drainage from the abscess site
no other issues
Objective Data
-
Labs:
Laboratory Results
04/22/24
05:01
WBC 13.0 H
Hgb 13.1
Hct 37.8 L
Plt Count 274
Sodium 135
Potassium 3.6
Chloride 99
Carbon Dioxide 26
BUN 16
Creatinine 0.9
Glucose 113 H
Calcium 8.7
Vital Signs:
Vital Signs
Temp Pulse Resp BP Pulse Ox
98.1 F 75 16 126/73 98
04/22/24 07:07 04/22/24 07:07 04/22/24 07:07 04/22/24 07:07 04/22/24 07:07
I&O
04/21/24 04/22/24 04/23/24
06:59 06:59 06:59
Intake Total 3380 / 3380 2400 / 2400
Balance 3380 / 3380 2400 / 2400
Review of Systems
-
Respiratory: Reports No Symptoms
Cardiac: Reports No Symptoms
Abdomen/GI: Reports No Symptoms
Physical Exam
-
General: Comfortable
HEENT: Negative Oxygen
Respiratory: Clear to Auscultation
Cardiac: Regular Rhythm and S1/S2; Negative Murmur or Rub
GI: Soft, Nontender, Nondistended and Other (Right lower quadrant swelling linear tracking on the back side, purulen drainage at prominence)
Musculoskeletal: No Edema
Neuro: Awake, Alert, Oriented, No Motor Deficits and Nonfocal/Grossly Intact
Psych: Calm
--- NOTE | 2024-04-22 10:49 | CM ---
Patient seen at bedside. Patient stated that his plan is to drive home and that he does not anticipate needing any VN supports. Patient stated that he had no other needs. CM will continue to follow for discharge planning needs.
Plan; home with no needs.
[2024-04-22] MEDS: VANCOCIN 300 MG IV (13:43)
[2024-04-22] MEDS: VANCOCIN 300 ML IV (13:43)
[2024-04-22 15:15] VITALS: BP 147/96
--- NOTE | 2024-04-22 17:09 | W.DCSUMMARY ---
Discharge Summary
Discharge Data
Date of Admission: 04/19/24
Date of Discharge: 04/22/24
-
Pending Results: No
Hospital Course
Discharging Physician : Dr John Granados
Disposition : Home
Primary care physician : Unknown
Principal Discharge diagnosis :
Methicillin-resistant Staphylococcus aureus skin abscess
Sepsis from skin abscess
Chronic Discharge diagnosis :
Chronic normocytic anemia
Hyponatremia
Hospital Course :
Patient is a 43-year-old male with mentioned past medical history came to ER for having right lower quadrant skin swelling with surrounding cellulitis. Patient was having severe pain they have question. Patient have history of contact sport with
possible exposure to unhygienic matts according to patient and also patient have history of ingrown hair which patient tried to pick without much help. Patient noticed new onset of redness and lump under the skin prompting ER visit. Initially
clinically there was concern about possible skin abscess and CT abdomen pelvis was done which ruled out any deeper collection or any skin collection. Patient was started on IV vancomycin and was monitored in hospital. Patient had spontaneous
drainage from most prominent area of indurated site and was cultured and later identified to be MRSA. General surgery was involved in care and did not feel any large fluctuant pockets that was drainable. A follow-up ultrasound was done after 72
hours which showed similar finding of soft tissue swelling and induration without any true drainable abscess cavity. Patient clinical lab markers were improving with IV vancomycin. Patient was discharged to home at this point with 7-day course of
Bactrim therapy. Patient instructed to do warm compress and continue expressing purulent material. Patient may require to follow-up with ID office if continues to have recurrent MRSA abscesses in future.
Important imaging findings :
None
Procedure findings :
None
Discharge Plan
-
Patient Disposition: Home (Routine Discharge)
Discharge Diagnosis/Procedures: Right abdominal wall skin abscess
Condition: Fair
Diet: Regular
Additional Diets: Maintain good liquid/water intake while on antibiotics
Activity: As tolerated
Driving Restrictions: No driving
Bathing Restrictions: OK to Shower
Referrals:
NONE,* [Family Provider] -
Prescriptions:
New
sulfamethoxazole-trimethoprim [Bactrim DS] 800-160 mg tablet
1 tab PO BID Qty: 14 0RF
Continued
Ashwagandha+Lion's Sean tablet
2 tab PO DAILY
Patient Comments:
04/19/2024, contains Ashwagandha, Lion's Sean, and Cordyceps per pt.
acetaminophen [Tylenol Extra Strength] 500 mg Tablet
1,000 mg PO DAILYPRN PRN (Reason: mild pain/fever)
ibuprofen 600 mg Tablet
1,200 mg PO DAILYPRN PRN (Reason: mild pain/fever)
creatine monohydrate Powder
1 ea PO DIRECTED
Patient Comments:
04/19/2024, pt. takes before workouts.
Beet Root powder
1 dose PO DIRECTED
Patient Comments:
04/19/2024, pt. takes before workouts.
Discharge Orders:
Discharge Patient (As Directed); Ordered 04/22/24
Ordered By: John Granados
Discharge Date and Time
Print Language: EMIRATI
== END 2024-04-22 17:00 | disposition home or self-care (01) | DRG 872 ==
LOC: 2 NORTH 06:45
PROVIDERS: ADMITTING PHYSICIAN Student in an Organized Health Care Education/Training Program; ATTENDING PHYSICIAN Hospitalist; EMERGENCY PHYSICIAN Emergency Medicine; OTHER PHYSICIAN Surgery
DX: A41.02 Sepsis due to Methicillin resistant Staphylococcus aureus (principal); L02.211 Cutaneous abscess of abdominal wall; E87.1 Hypo-osmolality and hyponatremia; L03.311 Cellulitis of abdominal wall; D64.9 Anemia, unspecified; R51.9 Headache, unspecified
CPT/HCPCS: 74177; 76705; 80048; 80053; 80202; 83036; 83605; 85025; 85027; 87040; 87070; 87147; 87186; 87205; 96374; 96375; 99285; Q9967